=== PATIENT | male | born 1985 | race Caucasian/White ===

== ENCOUNTER 2018-03-22 09:42 | Emergency (ER) | payer OTHER ==
[2018-03-22 09:42] VITALS: BMI 20.9
[2018-03-22 09:49] VITALS: BP 120/77; PULSE 71; RESP 18; TEMP 98.5; O2SAT 99
--- NOTE | 2018-03-22 10:19 | C.PDOC ---
History Of Present Illness 32 y/o male, with no PMHx, presents to ED complaining of a cold since 4 days ago, associated with nose congestion, headache, and sore throat. Patient states he took ibuprofen for the headache but with no relief. He also complains of cough and body weakness but denies fever, nausea, vomiting, diarrhea, or sick contacts. Time Seen by Provider: 03/22/18 10:04 Chief Complaint (Nursing): Cough, Cold, Congestion History Per: Patient History/Exam Limitations: no limitations Onset/Duration Of Symptoms: Days Current Symptoms Are (Timing): Still Present Past Medical History Reviewed: Historical Data, Nursing Documentation, Vital Signs Vital Signs: Last Vital Signs Temp 98.5 F 03/22/18 09:47 Pulse 71 03/22/18 09:47 Resp 18 03/22/18 09:47 BP 120/77 03/22/18 09:47 Pulse Ox 99 03/22/18 09:47 - Medical History PMH: Pneumonia Denies: Depression, Chronic Kidney Disease - [facility] Procedures INJECT ANTIBIOTIC (06/04/13) INJECT/INFUSE NEC (09/22/14) TETANUS TOXOID ADMINIST (06/04/13) Family History: States: No Known Family Hx - Social History Hx Tobacco Use: Yes Hx Alcohol Use: Yes Hx Substance Use: No - Immunization History Hx Tetanus Toxoid Vaccination: No Hx Influenza Vaccination: No Hx Pneumococcal Vaccination: No Review Of Systems Constitutional: Positive for: Weakness. Negative for: Fever ENT: Positive for: Nose Congestion, Throat Pain Cardiovascular: Negative for: Chest Pain Respiratory: Positive for: Cough. Negative for: Shortness of Breath Gastrointestinal: Negative for: Nausea, Vomiting, Abdominal Pain, Diarrhea Skin: Negative for: Rash Neurological: Positive for: Headache Physical Exam - Physical Exam Appears: Non-toxic, No Acute Distress Skin: Warm, Dry, No Rash Head: Atraumatic, Normacephalic, Tenderness (to frontal sinus) Eye(s): bilateral: Normal Inspection Ear(s): Bilateral: Normal Oral Mucosa: Moist Throat: Erythema (minimal), Other (No tonsillar enlargement) Lymphatic: Other (Posterior mandibular tender nodes) Chest: No Tenderness Cardiovascular: Rhythm Regular, No Murmur Respiratory: No Rales, No Rhonchi, No Wheezing, Other (Clear to auscultation bilaterally) Gastrointestinal/Abdominal: Soft, No Tenderness, No Distention Extremity: Bilateral: Atraumatic, Normal Color And Temperature, Normal ROM Neurological/Psych: Oriented x3, Normal Speech ED Course And Treatment O2 Sat by Pulse Oximetry: 99 (RA) Pulse Ox Interpretation: Normal Medical Decision Making Medical Decision Making: Plan: --Tylenol --Flu swab 1052 pt flu swab is neg, d/c with tylenol,motrin and claritin d. Disposition Counseled Patient/Family Regarding: Studies Performed, Diagnosis, Need For Followup, Rx Given - Disposition Referrals: [facility] [Outside] Disposition: HOME/ ROUTINE Disposition Time: 10:52 Condition: GOOD Additional Instructions: Bed rest, Increased fluids. Alternate Tylenol and Motrin. Recommend Claritin and Pseudofed. Follow up in clinic in a few days. Return for any worsening symptoms. Prescriptions: Acetaminophen [Arthritis Pain Reliever] 650 mg PO Q6 #40 tablet.er Ibuprofen [Motrin] 600 mg PO TID #30 tab Instructions: Upper Respiratory Infection (ED) Forms: [facility] (Divehi), General Discharge Instructions, Work Excuse - Clinical Impression Clinical Impression: Upper respiratory infection - PA / PUBLICITY DIRECTOR / Resident Statement MD/DO has reviewed & agrees with the documentation as recorded. - Scribe Statement The provider has reviewed the documentation as recorded by the Scribe Myranda Duff All medical record entries made by the Hitesh were at my direction and personally dictated by me. I have reviewed the chart and agree that the record accurately reflects my personal performance of the history, physical exam, medical decision making, and the department course for this patient. I have also personally directed, reviewed, and agree with the discharge instructions and disposition.
== END 2018-03-22 11:04 | disposition home or self-care (01) ==
LOC: C.ER 09:42
DX: J06.9 Acute upper respiratory infection, unspecified (principal); Z87.891 Personal history of nicotine dependence